=== PATIENT | male | born 1970 | race Caucasian/White ===

== ENCOUNTER 2016-09-13 09:52 | Day surgery (SDC) | payer BC ==
[2016-09-02 17:28] VITALS: BMI 28.1
[2016-09-13] MEDS ORDERED: MIDAZOLAM HCL 2 MG/2 ML SINGLE DOSE VIAL ONE (12:15)
[2016-09-13] MEDS ORDERED: PROPOFOL 20 ML ONE ×3 (12:41→13:10)
[2016-09-13] MEDS ORDERED: BUPIVACAINE HCL/EPINEPHRINE/PF 30 ML VIAL IJ ONE (13:07)
[2016-09-13] MEDS ORDERED: ONDANSETRON 4 MG/2 ML VIAL IVPUSH PRN (13:30)
[2016-09-13] MEDS ORDERED: oxyCODONE HCL 5 MG TABLET PO PRN (13:30)
--- NOTE | 2016-09-13 13:33 | OP ---
Operative Note - Note: Operative Date: 09/13/16 Pre-Operative Diagnosis: right knee lateral condyle cartilage defect Operation: RKA, chondroplasty, cartilage biopsy Post-Operative Diagnosis: Same as Pre-op Surgeon: Sebastien George Anesthesia: Local Operative Report Dictated: Yes
--- NOTE | 2016-09-13 13:34 | DS ---
Physical Examination Vital Signs: Vital Signs Temperature 97.8 F 09/13/16 10:25 Pulse Rate 82 09/13/16 10:25 Respiratory Rate 16 09/13/16 10:25 Blood Pressure 126/78 09/13/16 10:25 O2 Sat by Pulse Oximetry (%) 99 09/13/16 10:35 Discharge Summary Reason For Visit: LATERAL MENISCAL TEAR RIGHT KNEE Condition: Good - Instructions Diet, Activity, Other Instructions: Post Operative Instructions: Knee Arthroscopy Dr Sebastien George 1. Pain following an arthroscopy is variable. Some patients will have more pain than others. You have been provided with a prescription for medication that contains a narcotic. You are not allowed to drive while on this medication. You should NOT take Tylenol (Acetaminophen) when taking the pain medication ( it will result in an overdose). Feel free to take medications such as Ibuprofen or Naprosyn in addition to the pain medicine if you do not have any problems with the NSAID class of medications. 2. You are allowed to remove the bandages and shower in 24 hours unless directed otherwise. You are not allowed to bathe or go swimming until the sutures are removed. Put band-aids on the sutures after your shower and do not put any creams or lotions over the incisions. 3. You are allowed to put all your weight on the leg and bend your knee, unless directed otherwise. 4. Apply ice to the knee for 15 min every hour or so. You may continue this for as many days as you like. 5. Please call the office to schedule a visit to have your sutures removed. 6. If for any reason you believe you may have an infection or are concerned, please feel free to call me. I can be reached through our office number 24 hours a day. 7. Please call our office with any questions; we will review the surgical findings during your post operative visit. Disposition: HOME - Home Medications Comprehensive Discharge Medication List: Ambulatory Orders NK [No Known Home Medication] 09/02/16
[2016-09-13 14:42] VITALS: PULSE 65; TEMP 97.8
[2016-09-13 16:56] VITALS: BP 121/83
--- NOTE | 2016-09-17 13:59 | PATH ---
Surgical Pathology Report Patient Name: AGUSTINA ROONEY [facility]. Rec. #: [id number] /Age/Gender: 1970 (Age: 46) / M Account: [id number] Location: [facility] AMBULATORY Taken: 09/13/2016 Received: 09/13/2016 Reported: 09/17/2016 Physicians: Sebastien George M.D. Specimen(s) Received SHAVINGS RIGHT KNEE Clinical History Right knee cartilage defect Final Diagnosis KNEE, RIGHT, ARTHROSCOPIC SHAVING: FIBROCARTILAGE WITH MYXOID DEGENERATIVE CHANGES, ALONG WITH PORTIONS OF SYNOVIUM. Electronically Signed Alex Cornell M.D. Gross Description Received in formalin labeled "shavings right knee," is a 2.5 x 2.0 x 0.3 cm aggregate of reilly-yellow soft tissue fragments. The formalin is filtered and the specimen is entirely submitted in one cassette. /09/16/201609/16/2016
== END 2016-09-13 15:30 | disposition home or self-care (01) ==
LOC: FASU 09:52
PROVIDERS: ATTEND Orthopaedic Surgery
PROC: 0SBC4ZX Excision of Right Knee Joint, Percutaneous Endoscopic Approach, Diagnostic (ICD-10-PCS; 2016-09-13)
PROC: 0SBC4ZX Excision of Right Knee Joint, Percutaneous Endoscopic Approach, Diagnostic (ICD-10-PCS; principal; 2016-09-13 12:59)
DX: M24.10 Other articular cartilage disorders, unspecified site (principal)
CPT/HCPCS: 88304-TC; 94760

== ENCOUNTER 2016-11-22 06:00 | Day surgery (SDC) | payer BC ==
[2016-11-13 12:30] VITALS: BMI 28.1
[2016-11-22] MEDS ORDERED: MIDAZOLAM HCL 2 MG/2 ML SINGLE DOSE VIAL ONE ×2 (07:15→07:31)
[2016-11-22] MEDS ORDERED: PROPOFOL 20 ML ONE ×3 (07:15→08:54)
[2016-11-22] MEDS ORDERED: GELATIN, ABSORBABLE 100 EACH SPONGE TP ONE ×2 (07:20→09:16)
[2016-11-22] MEDS ORDERED: THROMBIN (BOVINE) 5,000 UNIT VIAL TP ONE ×2 (07:20→09:15)
[2016-11-22] MEDS ORDERED: BUPIVACAINE HCL/EPINEPHRINE/PF 30 ML VIAL IJ ONE ×2 (07:20→09:49)
[2016-11-22] MEDS ORDERED: DEXAMETHASONE SOD PHOSPHATE/PF 10 MG/ML SDV ONE (07:31)
[2016-11-22] MEDS ORDERED: BUPIVACAINE HCL/PF (5 MG/ML) 30 ML VIAL IJ ONE (07:32)
--- NOTE | 2016-11-22 07:44 | HP ---
Admitting History and Physical - Admission History of Present Illness: The patient is a 46 yo male who presents today for surgery. He injured himself in July while skiing. Currently he denies any pain, no fever, CP, SOB. History Source: Patient Limitations to Obtaining History: No Limitations - Past Medical History Cardiovascular: No: Deep Vein Thrombosis, HTN Pulmonary: No: Asthma Gastrointestinal: No: Gastritis, GERD Renal/: No: Hematuria, Renal Calculi - Past Surgical History Additional Past Surgical History: right knee scope hernia repair as a child - Smoking History Smoking history: Never smoked Have you smoked in the past 12 months: No If you are a former smoker, when did you quit?: [id number] MONTHS AGO - Alcohol/Substance Use Hx Alcohol Use: Yes (SOCIALLY) Home Medications - Allergies Allergies/Adverse Reactions: Allergies Allergy/AdvReac Type Severity Reaction Status Date / Time No Known Drug Allergies Allergy Verified 11/13/16 12:26 - Home Medications Home Medications: Ambulatory Orders NK [No Known Home Medication] 11/13/16 Review of Systems - Review of Systems Constitutional: reports: No Symptoms. denies: Chills, Fever Neck: denies: Decreased ROM, Pain on Movement Cardiovascular: denies: Chest Pain, Palpitations, Shortness of Breath Respiratory: denies: Cough, SOB Gastrointestinal: denies: Abdominal Pain, Nausea Genitourinary: denies: Burning, Dysuria Musculoskeletal: reports: Back Pain. denies: Joint Pain, Joint Swelling Neurological: denies: Headache, Seizure Hematology/Lymphatic: denies: Easily Bruised, Excessive Bleeding Physical Examination Vital Signs: Vital Signs Temperature 98.1 F 11/22/16 06:24 Pulse Rate 69 11/22/16 06:24 Respiratory Rate 16 11/22/16 06:24 Blood Pressure 133/84 11/22/16 06:24 O2 Sat by Pulse Oximetry (%) 96 11/22/16 06:24 Constitutional: Yes: Well Nourished, Calm HENT: Yes: WNL, Atraumatic, Normocephalic Neck: Yes: WNL, Supple, Trachea Midline Cardiovascular: Yes: WNL, Regular Rate and Rhythm Respiratory: Yes: WNL, Regular, CTA Bilaterally Gastrointestinal: Yes: WNL, Normal Bowel Sounds, Soft Extremities: No: Calf Tenderness Edema: No Peripheral Pulses WNL: No Peripheral Pulses: Left Doralis Pedis: 2+, Right Dorsalis Pedis: 2+ Neurological: Yes: WNL, Alert, Oriented ...Motor Strength: WNL, LUE, LLE, RUE, RLE Psychiatric: Yes: WNL, Alert, Oriented Assessment/Plan 46 yo male for right knee surgery today -chondrycyte implantation Plan for IV abx at time of the surgery DVT ppx with SCDs to left leg Anestehesia, spinal with local block
[2016-11-22] MEDS ORDERED: DEXAMETHASONE SOD PHOSPHATE 4 MG/1 ML VIAL ONE (08:40)
[2016-11-22] MEDS ORDERED: ONDANSETRON 4 MG/2 ML VIAL ONE (08:40)
--- NOTE | 2016-11-22 10:04 | OP ---
Operative Note - Note: Operative Date: 11/22/16 Pre-Operative Diagnosis: right knee lateral condyle cartilage defect. Operation: right knee open cartilage implantation (MIKE). CPT 75419 Post-Operative Diagnosis: Same as Pre-op Anesthesia: Spinal Operative Report Dictated: Yes
--- NOTE | 2016-11-22 10:08 | DS ---
Physical Examination Vital Signs: Vital Signs Temperature 98.1 F 11/22/16 06:24 Pulse Rate 69 11/22/16 06:24 Respiratory Rate 16 11/22/16 06:24 Blood Pressure 133/84 11/22/16 06:24 O2 Sat by Pulse Oximetry (%) 96 11/22/16 06:24 Discharge Summary Reason For Visit: OSTEOACHONDRAL DEFECT LEFT KNEE Condition: Good - Instructions Diet, Activity, Other Instructions: Toe Touch weight bearing with crutches. Knee immobilizer at all times ... except 1. remove the brace twice a day for CPM 2. CPM should be 0- 45 degrees for one hour 3.remove brace and actively move your knee from 0-45 degrees 10x twice a day Stay elevated at rest TAKE ASPIRIN 325 MG TWICE A DAY STARTING 11/23/16 FOR BLOOD CLOT PREVENTION. YOU WILL BE ON ASPIRIN FOR TWO WEEKS. Disposition: HOME - Home Medications Comprehensive Discharge Medication List: Ambulatory Orders NK [No Known Home Medication] 11/13/16
[2016-11-22] MEDS ORDERED: ONDANSETRON 4 MG/2 ML VIAL IVPUSH PRN (10:11)
[2016-11-22] MEDS ORDERED: oxyCODONE HCL 5 MG TABLET PO PRN (10:11)
[2016-11-22] MEDS ORDERED: LACTATED RINGERS SOLUTION 1,000 ML IV SCH (10:15)
[2016-11-22 11:31] VITALS: TEMP 97.9
--- NOTE | 2016-11-22 11:31 | SURG ---
Surgery Risk Engineer Note Risk Engineer: Yahaira Restrepo PA-C Date of Service: 11/22/16 Diagnosis: right knee lateral condyle cartilage defect. Procedure: right knee open cartilage implantation (MIKE). CPT 60455 I was present for the entirety of the operative procedure. For further detail, please refer to operative report. Visit type - Case Type Case Type: Scheduled Admission - Emergency Emergency Visit: No - New patient This patient is new to me today: Yes Date on this admission: 11/22/16 - Critical Care Critical Care patient: No
[2016-11-22] MEDS ORDERED: oxyCODONE HCL 5 MG TABLET ONE (14:52)
[2016-11-22 17:02] VITALS: BP 124/84; PULSE 64
== END 2016-11-22 15:30 | disposition home or self-care (01) ==
LOC: FASU 06:00
PROVIDERS: ATTEND Orthopaedic Surgery
PROC: 0YU Anatomical Regions, Lower Extremities, Supplement (ICD-10-PCS; principal; 2016-11-22 08:42)
DX: M93.262 Osteochondritis dissecans, left knee (principal)
CPT/HCPCS: 27412; J7330; 94760; 97116-GP